=== PATIENT | female | born 1970 | race African-American/Black ===

== ENCOUNTER 2016-10-02 17:58 | Emergency (ER) | payer OTHER ==
[2016-10-02] MEDS ORDERED: Magnesium Citrate 300 ML BOT ONE (18:59)
[2016-10-02] MEDS ORDERED: Bisacodyl 10 MG SUPP ONE (19:21)
--- NOTE | 2016-10-02 19:31 | RAD ---
ABDOMEN ONE VIEW 10/02/16 The bowel gas pattern is nonspecific. There is some mildly distended unorganized loops of proximal s mall bowel, maximal diameter of 3 cm. There is no small bowel dilation elsewhere. There is abundant fecal material in the colon but it is not significantly distended. Surgical clips are noted in the r ight upper quadrant and around the fundus of the stomach. The pelvis shows the right hip arthroplast y with no gross postoperative abnormalities. IMPRESSION: Mild constipation and nonspecific bowel gas pattern. POS: HOME
[2016-10-02] MEDS ORDERED: Fleet Enema 133 ML BOT PR SCH (20:00)
== END 2016-10-02 20:45 | disposition home or self-care (01) ==
LOC: BURERS 17:58
DX: M96.89 Other intraoperative and postprocedural complications and disorders of the musculoskeletal system (principal); K59.00 Constipation, unspecified; F41.9 Anxiety disorder, unspecified; F32.9 Major depressive disorder, single episode, unspecified; Z87.891 Personal history of nicotine dependence
CPT/HCPCS: 74000

== ENCOUNTER 2016-12-22 00:36 | Emergency (ER) | payer OTHER ==
[2016-12-22 01:06] LABS: Bilirubin Negative (Negative); Blood, Urine Trace (Negative); Clarity Clear (Clear); Glucose, Urine (Dipstick) Negative (Negative); Leukocyte Negative (Negative); Nitrite Negative (Negative); Protein, Urine (Dipstick) Negative (Neg-Trace); Urobilinogen 0.2 mg/dL (0.2-1.0)
[2016-12-22 01:13] LABS: Bacteria/HPF Rare-Few HPF (None Seen); RBC/HPF 0-3 HPF (0-3); Squamous Epithelial 0-3 HPF (0-3); WBC/HPF 0-3 HPF (0-3)
[2016-12-22 01:14] LABS: Other Microscopic Description RARE CLUE CELL
== END 2016-12-22 02:00 | disposition home or self-care (01) ==
LOC: BURERS 00:36
DX: J20.9 Acute bronchitis, unspecified (principal); F41.9 Anxiety disorder, unspecified; F32.9 Major depressive disorder, single episode, unspecified; F17.210 Nicotine dependence, cigarettes, uncomplicated
CPT/HCPCS: 81003; 81015; 87086; 99283

== ENCOUNTER 2017-02-01 18:36 | Emergency (ER) | payer MEDICARE, OTHER ==
[2017-02-01] MEDS ORDERED: HYDROcodone/Acetaminophen 10/325 mg Tablet ONE (18:51)
[2017-02-01] MEDS ORDERED: Ketorolac Tromethamine 30 MG/ML VIAL ONE (18:52)
[2017-02-01 18:56] LABS: Bilirubin Negative (Negative); Blood, Urine Small (Negative); Clarity Cloudy (Clear); Glucose, Urine (Dipstick) Negative (Negative); Leukocyte Negative (Negative); Nitrite Negative (Negative); Protein, Urine (Dipstick) Negative (Neg-Trace); Specific Gravity, Urine 1.025 (1.005-1.030); Urobilinogen 0.2 mg/dL (0.2-1.0)
[2017-02-01 18:59] LABS: Bacteria/HPF 4+ HPF (None Seen); RBC/HPF 0-3 HPF (0-3); WBC/HPF 0-3 HPF (0-3)
== END 2017-02-01 19:10 | disposition home or self-care (01) ==
LOC: BURERS 18:36
DX: M54.5 Low back pain (principal); Z87.39 Personal history of other diseases of the musculoskeletal system and connective tissue; F41.9 Anxiety disorder, unspecified; F32.9 Major depressive disorder, single episode, unspecified
CPT/HCPCS: 81003; 81015; 87086; 96372; J1885

== ENCOUNTER 2017-12-02 09:05 | Emergency (ER) | payer OTHER, SELFPAY ==
[2017-12-02 09:44] LABS: Clarity Cloudy (Clear); Specific Gravity, Urine 1.025 (1.005-1.030)
[2017-12-02 09:45] LABS: Bilirubin Negative (Negative); Blood, Urine Trace (Negative); Glucose, Urine (Dipstick) Negative (Negative); Leukocyte Moderate (Negative); Nitrite Negative (Negative); Protein, Urine (Dipstick) Negative (Neg-Trace); Urobilinogen 0.2 mg/dL (0.2-1.0)
[2017-12-02 10:03] LABS: #Eosinphils 0.1 thou/uL (0.0-0.7); #Lymphocytes 1.4 thou/uL (1.20-3.40); #Monocytes 0.2 thou/uL (0.11-0.59); #Neutrophils 2.8 thou/uL (1.40-6.50); %Basophils 0.5 % (0.0-1.0); %Eosinophils 1.7 % (0.0-10.0); %Lymphocytes 31.4 % (21.0-51.0); %Monocytes 4.2 % (0.0-10.0); %Neutrophils 62.3 % (42.0-75.0); Hemoglobin 12.7 g/dL (12.0-16.0); Mean Corpuscular HGB CONC 32.4 g/dL (32.0-36.0); Mean Corpuscular Hemoglobin 29.1 pg (27.0-31.0); Mean Corpuscular Volume 89.6 fL (78.0-98.0); Mean Platelet Volume 6.4 fL (7.4-10.4); Platelet Count 356 thou/uL (130-400); Red Blood Cell (RBC) Count 4.37 mill/uL (4.20-5.40); White Blood Cell (WBC) Count 4.5 thou/uL (4.8-10.8)
[2017-12-02 10:05] LABS: Bacteria/HPF 2+ HPF (None Seen); RBC/HPF None Seen HPF (0-3); Squamous Epithelial 21-50 HPF (0-3); Transitional Epithelial 0-3 HPF (0-3); WBC/HPF 0-3 HPF (0-3); Yeast-All Forms 4+ HPF (None Seen)
[2017-12-02 10:16] LABS: Anion Gap 10 mmol/L (10-20); BUN (Urea Nitrogen) 9 mg/dL (7.0-18.7); Calc. Creatinine Clearance 0 mL/min (70-130); Calcium 9.3 mg/dL (7.8-10.44); Carbon Dioxide 27 mmol/L (22-29); Chloride 110 mmol/L (98-107); Estimated GFR-MDRD Greater than 90; Glucose 106 mg/dL (70-105); Potassium 3.8 mmol/L (3.5-5.1); Sodium 143 mmol/L (136-145); Uric Acid 3.8 mg/dL (2.6-6.0)
[2017-12-02] MEDS ORDERED: HYDROcodone/Acetaminophen 5/325 mg Tablet ONE (10:31)
[2017-12-02] MEDS ORDERED: Sulfameth/Trimethoprim DS 800-160mg TAB ONE (10:31)
[2017-12-02] MEDS ORDERED: Ibuprofen 800 MG TAB ONE (10:31)
[2017-12-02] MEDS ORDERED: Phenazopyridine HCl 97.5 MG TABLET ONE (10:31)
== END 2017-12-02 10:40 | disposition home or self-care (01) ==
LOC: BURERS 09:05
DX: M79.672 Pain in left foot (principal); B37.3 Candidiasis of vulva and vagina; R82.71 Bacteriuria; F31.9 Bipolar disorder, unspecified; F41.9 Anxiety disorder, unspecified; F17.210 Nicotine dependence, cigarettes, uncomplicated
CPT/HCPCS: 80048; 81003; 81015; 84550; 85025; 99283

== ENCOUNTER 2018-02-28 19:35 | Emergency (ER) | payer MEDICARE, SELFPAY ==
[2018-02-28 20:24] LABS: Clarity Hazy (Clear)
[2018-02-28 20:25] LABS: Bilirubin Negative (Negative); Blood, Urine Trace (Negative); Glucose, Urine (Dipstick) Negative (Negative); Leukocyte Negative (Negative); Nitrite Negative (Negative); Protein, Urine (Dipstick) Negative (Neg-Trace)
[2018-02-28 20:33] LABS: Bacteria/HPF 1+ HPF (None Seen); Hyaline Casts/LPF 0-3 HYALINE CAST LPF (0-3 Hyaline); Other Microscopic Description 1+ MUCUS; WBC/HPF 0-3 HPF (0-3)
--- NOTE | 2018-02-28 21:42 | RAD ---
RIGHT HIP TWO VIEWS: 02/28/18 A prior hip arthroplasty is noted. There is no sign of loosening or infection of the appliance. The s urrounding bone shows no acute changes. No fracture or area of bony destruction was seen. IMPRESSION: No acute findings. POS: HOME
== END 2018-02-28 21:21 | disposition home or self-care (01) ==
LOC: BURERS 19:35
DX: S39.012A Strain of muscle, fascia and tendon of lower back, initial encounter (principal); F41.9 Anxiety disorder, unspecified; F31.9 Bipolar disorder, unspecified; F17.210 Nicotine dependence, cigarettes, uncomplicated; Z79.1 Long term (current) use of non-steroidal anti-inflammatories (NSAID); Z79.899 Other long term (current) drug therapy; X58.XXXA Exposure to other specified factors, initial encounter
CPT/HCPCS: 81003; 81015

== ENCOUNTER 2018-06-08 09:56 | Emergency (ER) | payer MEDICARE ==
[2018-06-08] MEDS ORDERED: Dicyclomine 20 MG TAB ONE (10:29)
[2018-06-08] MEDS ORDERED: Ondansetron PF 4 MG/2 ML Vial ONE (10:29)
[2018-06-08] MEDS ORDERED: Ketorolac Tromethamine 30 MG/ML VIAL ONE (10:30)
[2018-06-08 10:50] LABS: ALT (SGPT) 14 U/L (8-55); AST (SGOT) 21 U/L (5-34); Albumin 3.9 g/dL (3.5-5.0); Alkaline Phosphatase 71 U/L (40-150); Anion Gap 13 mmol/L (10-20); BUN (Urea Nitrogen) 11 mg/dL (7.0-18.7); Bilirubin, Total 0.9 mg/dL (0.2-1.2); Calc. Creatinine Clearance 0 mL/min (70-130); Calcium 8.8 mg/dL (7.8-10.44); Carbon Dioxide 22 mmol/L (22-29); Chloride 105 mmol/L (98-107); Estimated GFR-MDRD Greater than 90; Globulin 3.3 g/dL (2.4-3.5); Glucose 80 mg/dL (70-105); Lipase 8 U/L (8-78); Protein, Total 7.2 g/dL (6.0-8.3)
[2018-06-08 11:06] LABS: #Lymphocytes 0.3 thou/uL (1.20-3.40); #Monocytes 0.1 thou/uL (0.11-0.59); #Neutrophils 4.5 thou/uL (1.40-6.50); %Basophils 0.4 % (0.0-1.0); %Eosinophils 0.8 % (0.0-10.0); %Lymphocytes 6.4 % (21.0-51.0); %Monocytes 2.6 % (0.0-10.0); %Neutrophils 89.9 % (42.0-75.0); Hemoglobin 12.4 g/dL (12.0-16.0); Mean Corpuscular HGB CONC 31.5 g/dL (32.0-36.0); Mean Corpuscular Hemoglobin 29.4 pg (27.0-31.0); Mean Corpuscular Volume 93.3 fL (78.0-98.0); Mean Platelet Volume 5.8 fL (7.4-10.4); Platelet Count 312 thou/uL (130-400); RBC Distribution Width 13.4 % (11.5-14.5); Red Blood Cell (RBC) Count 4.21 mill/uL (4.20-5.40); White Blood Cell (WBC) Count 5.1 thou/uL (4.8-10.8)
[2018-06-08] MEDS ORDERED: Lidocaine Viscous Sol 2% 15 ml UD Cup ONE (11:14)
[2018-06-08] MEDS ORDERED: Mag-Al Plus 1200 MG/1200 MG/120 MG/30 ML UDCUP ONE (11:14)
[2018-06-08 13:41] LABS: Pregnancy Test - Urine (BHCG) Negative (Negative); Pregu Control Background? CLEAR/WHITE (CLR/WHITE); Pregu Control Bar Appear? YES (CONTROL BAR); Specific Gravity 1.025 (1.002-1.036)
[2018-06-08 13:42] LABS: Clarity SLIGHTLY (Clear); Specific Gravity, Urine 1.025 (1.005-1.030); pH, Urine 5.5 (5.0-9.0)
[2018-06-08 13:43] LABS: Bacteria/HPF Rare-Few HPF (None Seen); Bilirubin Small (Negative); Blood, Urine Small (Negative); Glucose, Urine (Dipstick) Negative (Negative); Leukocyte Negative (Negative); Nitrite Negative (Negative); Oval Fat Bodies/HPF None Seen HPF (None Seen); Protein, Urine (Dipstick) Negative (Neg-Trace); RBC/HPF 0-3 HPF (0-3); Renal Epithelial None Seen HPF (0-3); Sperm/HPF None Seen HPF (None Seen); Squamous Epithelial 0-3 HPF (0-3); Transitional Epithelial NONE SEEN HPF (0-3); Trichomonas/HPF None Seen HPF (None Seen); Urobilinogen 0.2 mg/dL (0.2-1.0); WBC/HPF 0-3 HPF (0-3); Yeast-All Forms None Seen HPF (None Seen)
[2018-06-08 13:44] LABS: Crystals/HPF None Seen HPF (Negative); Hyaline Casts/LPF NONE SEEN LPF (0-3 Hyaline); Other Casts/LPF None Seen LPF (0-3 Hyaline)
[2018-06-08 13:46] LABS: Potassium 3.7 mmol/L (3.5-5.1); Sodium 135 mmol/L (136-145)
== END 2018-06-08 13:10 | disposition home or self-care (01) ==
LOC: BURERS 09:56
DX: K52.9 Noninfective gastroenteritis and colitis, unspecified (principal); F41.9 Anxiety disorder, unspecified; F31.9 Bipolar disorder, unspecified; F17.210 Nicotine dependence, cigarettes, uncomplicated
CPT/HCPCS: 80053; 81003; 81015; 81025; 83690; 85025; 96361; 96374; 96375; J1885; J2405

== ENCOUNTER 2018-11-05 14:02 | Emergency (ER) | payer MEDICARE ==
[2018-11-05] MEDS ORDERED: Ketorolac Tromethamine 60 MG/2 ML VIAL ONE (14:38)
[2018-11-05] MEDS ORDERED: Morphine 4 MG/ML VIAL ONE (14:38)
== END 2018-11-05 14:49 | disposition home or self-care (01) ==
LOC: BURERS 14:02
DX: M54.5 Low back pain (principal); F41.9 Anxiety disorder, unspecified; F31.9 Bipolar disorder, unspecified; F17.210 Nicotine dependence, cigarettes, uncomplicated; Z79.891 Long term (current) use of opiate analgesic; Z79.899 Other long term (current) drug therapy
CPT/HCPCS: 96372; 99283; J1885; J2270

== ENCOUNTER 2018-12-20 20:38 | Emergency (ER) | payer MEDICARE, BC | END 2018-12-20 21:05 | disposition home or self-care, planned readmission (81) | LOC: BURERS 20:38 | DX: G89.29 Other chronic pain (principal); M54.5 Low back pain; F31.9 Bipolar disorder, unspecified; F41.9 Anxiety disorder, unspecified; F17.210 Nicotine dependence, cigarettes, uncomplicated ==

== ENCOUNTER → 2019-03-03 | Emergency (ER) | payer MEDICARE, BC ==
[2019-03-03 08:16] LABS: ALT (SGPT) 11 U/L (8-55); AST (SGOT) 11 U/L (5-34); Albumin 4.1 g/dL (3.5-5.0); Alkaline Phosphatase 76 U/L (40-110); Anion Gap 14 mmol/L (10-20); BUN (Urea Nitrogen) 8 mg/dL (7.0-18.7); Bilirubin, Total 0.5 mg/dL (0.2-1.2); Calc. Creatinine Clearance 0 mL/min (70-130); Calcium 9.3 mg/dL (7.8-10.44); Carbon Dioxide 24 mmol/L (22-29); Chloride 105 mmol/L (98-107); Estimated GFR-MDRD Greater than 90; Globulin 3.5 g/dL (2.4-3.5); Potassium 3.9 mmol/L (3.5-5.1); Protein, Total 7.6 g/dL (6.0-8.3); Sodium 139 mmol/L (136-145)
[2019-03-03 08:17] LABS: #Basophils 0.1 thou/uL (0.0-0.2); #Eosinphils 0.1 thou/uL (0.0-0.7); #Lymphocytes 1.6 thou/uL (1.20-3.40); #Monocytes 0.4 thou/uL (0.11-0.59); #Neutrophils 4.4 thou/uL (1.40-6.50); %Basophils 1.1 % (0.0-1.0); %Eosinophils 1.3 % (0.0-10.0); %Lymphocytes 24.3 % (21.0-51.0); %Neutrophils 67.2 % (42.0-75.0); Hemoglobin 13.3 g/dL (12.0-16.0); Mean Corpuscular HGB CONC 31.1 g/dL (32.0-36.0); Mean Corpuscular Hemoglobin 28.7 pg (27.0-31.0); Mean Corpuscular Volume 92.3 fL (78.0-98.0); Mean Platelet Volume 5.9 fL (7.4-10.4); Platelet Count 367 thou/uL (130-400); RBC Distribution Width 13.9 % (11.5-14.5); Red Blood Cell (RBC) Count 4.64 mill/uL (4.20-5.40); White Blood Cell (WBC) Count 6.6 thou/uL (4.8-10.8)
[2019-03-03 08:42] LABS: Glucose 54 mg/dL (70-105)
== END ==
LOC: BURERS 07:11
DX: S80.02XA Contusion of left knee, initial encounter (principal); S80.01XA Contusion of right knee, initial encounter; M54.5 Low back pain; G89.29 Other chronic pain; R55 Syncope and collapse; F31.9 Bipolar disorder, unspecified; F41.9 Anxiety disorder, unspecified; F17.210 Nicotine dependence, cigarettes, uncomplicated; Z79.899 Other long term (current) drug therapy; W18.30XA Fall on same level, unspecified, initial encounter
CPT/HCPCS: 36415; 80053; 85025; 93005

== ENCOUNTER 2019-04-11 12:11 | Emergency (ER) | payer BC, MEDICARE | END 2019-04-11 12:49 | disposition left against medical advice (07) | LOC: BURERS 12:11 | DX: R07.9 Chest pain, unspecified (principal); F41.9 Anxiety disorder, unspecified; F31.9 Bipolar disorder, unspecified; F17.210 Nicotine dependence, cigarettes, uncomplicated; Z79.899 Other long term (current) drug therapy | CPT/HCPCS: 93005 ==

== ENCOUNTER 2019-06-03 22:36 | Emergency (ER) | payer MEDICARE, MEDICAID ==
[2019-06-03] MEDS ORDERED: predniSONE 20 MG TAB ONE (22:52)
[2019-06-03] MEDS ORDERED: diphenhydrAMINE 50 MG/ML VIAL ONE (22:52)
== END 2019-06-03 23:24 | disposition home or self-care (01) ==
LOC: BURERS 22:36
DX: S00.86XA Insect bite (nonvenomous) of other part of head, initial encounter (principal); F31.9 Bipolar disorder, unspecified; F41.9 Anxiety disorder, unspecified; F17.210 Nicotine dependence, cigarettes, uncomplicated; Z79.891 Long term (current) use of opiate analgesic; Z71.6 Tobacco abuse counseling; Z79.899 Other long term (current) drug therapy; W57.XXXA Bitten or stung by nonvenomous insect and other nonvenomous arthropods, initial encounter
CPT/HCPCS: J1200; J7512; 96372; 99406

== ENCOUNTER 2019-10-09 16:19 | Emergency (ER) | payer MEDICARE, MEDICAID ==
[2019-10-09] MEDS ORDERED: Ketorolac Tromethamine 30 MG/ML VIAL ONE (17:34)
--- NOTE | 2019-10-09 19:58 | RAD ---
RIGHT ANKLE THREE VIEWS: 10/09/19 No acute fracture was seen. There is a bony density near the tip of the medial malleolus that is sugg estive of old trauma in this location. The articular surfaces are smooth. IMPRESSION: Soft tissue swelling but no acute bony finding. POS: HOME
== END 2019-10-09 17:50 | disposition home or self-care (01) ==
LOC: BURERS 16:19
DX: S93.401A Sprain of unspecified ligament of right ankle, initial encounter (principal); F31.9 Bipolar disorder, unspecified; F41.9 Anxiety disorder, unspecified; F17.210 Nicotine dependence, cigarettes, uncomplicated; Z79.899 Other long term (current) drug therapy; X50.1XXA Overexertion from prolonged static or awkward postures, initial encounter
CPT/HCPCS: 96372; J1885

== ENCOUNTER 2020-05-26 17:56 | Emergency (ER) | payer MEDICARE, MEDICAID ==
[~2020-05-26 17:56] MED LIST: Iopamidol 370 76% 100 ML VIAL ONE
[2020-05-26] MEDS ORDERED: Acetaminophen 500 MG TAB ONE (18:24)
[2020-05-26] MEDS ORDERED: Ondansetron PF 4 MG/2 ML Vial ONE (18:35)
[2020-05-26] MEDS ORDERED: Lidocaine Viscous Sol 2% 15 ml UD Cup ONE (18:48)
[2020-05-26] MEDS ORDERED: Mag-Al Plus 1200 MG/1200 MG/120 MG/30 ML UDCUP ONE (18:48)
[2020-05-26 19:17] LABS: ALT (SGPT) Less than 7 U/L (8-55); AST (SGOT) 13 U/L (5-34); Albumin 3.9 g/dL (3.5-5.0); Alkaline Phosphatase 71 U/L (40-110); Anion Gap 14 mmol/L (10-20); BUN (Urea Nitrogen) 11 mg/dL (7.0-18.7); Bilirubin, Total 0.5 mg/dL (0.2-1.2); Calc. Creatinine Clearance 0 mL/min (70-130); Calcium 8.7 mg/dL (7.8-10.44); Carbon Dioxide 27 mmol/L (22-29); Chloride 101 mmol/L (98-107); Globulin 3.7 g/dL (2.4-3.5); Glucose 97 mg/dL (70-105); Lipase 17 U/L (8-78); Potassium 3.8 mmol/L (3.5-5.1); Protein, Total 7.6 g/dL (6.0-8.3); Sodium 138 mmol/L (136-145)
[2020-05-26 19:27] LABS: Hemoglobin 14.7 g/dL (12.0-16.0); Mean Corpuscular Hemoglobin 31.2 pg (27.0-31.0); Mean Corpuscular Volume 94.5 fL (78.0-98.0); Mean Platelet Volume 6.4 fL (7.4-10.4); Platelet Count 302 thou/uL (130-400); RBC Distribution Width 12.5 % (11.5-14.5); Red Blood Cell (RBC) Count 4.72 mill/uL (4.20-5.40); White Blood Cell (WBC) Count 5.5 thou/uL (4.8-10.8)
[2020-05-26 19:59] LABS: Band 10 % (5-11); Eosinophils 1 % (0-10); Lymphocytes 9 % (21-51); MDiff Complete? YES; Monocytes 2 % (0-10); Myelocyte 1 % (0-0); Neutrophil 77 % (42-75)
[2020-05-26 20:29] LABS: Bilirubin Negative (Negative); Blood, Urine Trace (Negative); Clarity Clear (Clear); Glucose, Urine (Dipstick) Negative (Negative); Ketone, Urine Negative (Negative); Leukocyte Negative (Negative); Nitrite Negative (Negative); Protein, Urine (Dipstick) Negative (Neg-Trace); pH, Urine 7.5 (5.0-9.0)
[2020-05-26 20:38] LABS: Bacteria/HPF Rare-Few HPF (None Seen); RBC/HPF 0-3 HPF (0-3); Squamous Epithelial 0-3 HPF (0-3); WBC/HPF 0-3 HPF (0-3)
[2020-05-27 18:10] LABS: SARS-CoV-2 PCR by NAA Not Detected (NotDetected)
== END 2020-05-26 21:04 | disposition home or self-care (01) ==
LOC: BURERS 17:56
DX: A08.4 Viral intestinal infection, unspecified (principal); F17.210 Nicotine dependence, cigarettes, uncomplicated; R11.2 Nausea with vomiting, unspecified; Z79.899 Other long term (current) drug therapy; Z20.822 Contact with and (suspected) exposure to COVID-19
CPT/HCPCS: 71045; 74177; 80053; 81003; 81015; 83690; 84484; 85025; 87635; 93005; 96374; J2405; Q9967; U0003; U0005

== ENCOUNTER 2020-06-25 10:25 | Outpatient (CLI) | payer MEDICARE, MEDICAID ==
[2020-06-25] MEDS ORDERED: Iopamidol 370 76% 100 ML VIAL ONE (14:24)
== END 2020-06-25 10:26 | disposition home or self-care (01) ==
LOC: BURCT 10:25
PROVIDERS: ATTEND Family Medicine
DX: G44.52 New daily persistent headache (NDPH) (principal); H53.8 Other visual disturbances
CPT/HCPCS: 70470; Q9967

== ENCOUNTER 2020-10-04 07:15 | Emergency (ER) | payer MEDICARE, MEDICAID ==
[2020-10-04 08:12] LABS: #Eosinphils 0.1 thou/uL (0.0-0.7); #Lymphocytes 1.3 thou/uL (1.20-3.40); #Monocytes 0.3 thou/uL (0.11-0.59); #Neutrophils 2.6 thou/uL (1.40-6.50); %Basophils 0.7 % (0.0-1.0); %Eosinophils 2.2 % (0.0-10.0); %Lymphocytes 30.5 % (21.0-51.0); %Monocytes 7.1 % (0.0-10.0); %Neutrophils 59.4 % (42.0-75.0); Hemoglobin 13.5 g/dL (12.0-16.0); Mean Corpuscular HGB CONC 33.2 g/dL (32.0-36.0); Mean Corpuscular Hemoglobin 31.1 pg (27.0-31.0); Mean Corpuscular Volume 93.8 fL (78.0-98.0); Mean Platelet Volume 6.3 fL (7.4-10.4); Platelet Count 328 thou/uL (130-400); RBC Distribution Width 12.8 % (11.5-14.5); Red Blood Cell (RBC) Count 4.36 mill/uL (4.20-5.40); White Blood Cell (WBC) Count 4.3 thou/uL (4.8-10.8)
[2020-10-04] MEDS ORDERED: Dexamethasone 4 MG TAB ONE (08:36)
== END 2020-10-04 08:38 | disposition home or self-care (01) ==
LOC: BURERS 07:15
DX: M76.62 Achilles tendinitis, left leg (principal); M19.90 Unspecified osteoarthritis, unspecified site; Z79.899 Other long term (current) drug therapy
CPT/HCPCS: 36415; 83880; 84550; 85025; 99283; J8540

== ENCOUNTER 2020-11-17 15:03 | Emergency (ER) | payer MEDICARE, MEDICAID | END 2020-11-17 15:50 | disposition home or self-care (01) | LOC: BURERS 15:03 | DX: M76.62 Achilles tendinitis, left leg (principal) | CPT/HCPCS: 99283 ==

== ENCOUNTER 2021-02-03 04:47 | Emergency (ER) | payer MEDICARE, MEDICAID ==
[2021-02-03] MEDS ORDERED: Ondansetron ODT 4 MG TAB ONE (05:19)
[2021-02-03] MEDS ORDERED: Mag-Al Plus 1200 MG/1200 MG/120 MG/30 ML UDCUP ONE (05:20)
[2021-02-03] MEDS ORDERED: Ketorolac Tromethamine 60 MG/2 ML VIAL ONE (05:20)
[2021-02-03] MEDS ORDERED: Lidocaine Viscous Sol 2% 15 ml UD Cup ONE (05:20)
[2021-02-03 19:49] LABS: SARS-CoV-2 PCR by NAA Not Detected (NotDetected)
== END 2021-02-03 05:42 | disposition home or self-care (01) ==
LOC: BURERS 04:47
DX: K29.70 Gastritis, unspecified, without bleeding (principal); Z20.822 Contact with and (suspected) exposure to COVID-19; M19.90 Unspecified osteoarthritis, unspecified site; Z79.899 Other long term (current) drug therapy
CPT/HCPCS: 96372; 99284; J1885; Q0162; U0003; U0005

== ENCOUNTER 2021-03-30 08:27 | Outpatient (CLI) | payer MEDICARE, MEDICAID ==
[2021-03-30 09:40] LABS: #Basophils 0.1 thou/uL (0.0-0.2); #Eosinphils 0.1 thou/uL (0.0-0.7); #Lymphocytes 1.5 thou/uL (1.20-3.40); #Monocytes 0.4 thou/uL (0.11-0.59); #Neutrophils 3.9 thou/uL (1.40-6.50); %Basophils 1.7 % (0.0-1.0); %Eosinophils 1.2 % (0.0-10.0); %Lymphocytes 24.8 % (21.0-51.0); %Monocytes 6.1 % (0.0-10.0); %Neutrophils 66.2 % (42.0-75.0); Hemoglobin 14.1 g/dL (12.0-16.0); Mean Corpuscular HGB CONC 32.4 g/dL (32.0-36.0); Mean Corpuscular Hemoglobin 30.5 pg (27.0-31.0); Mean Corpuscular Volume 94.2 fL (78.0-98.0); Mean Platelet Volume 5.6 fL (7.4-10.4); Platelet Count 333 thou/uL (130-400); RBC Distribution Width 12.7 % (11.5-14.5); Red Blood Cell (RBC) Count 4.63 mill/uL (4.20-5.40)
[2021-03-30 10:15] LABS: ALT (SGPT) 9 U/L (8-55); AST (SGOT) 12 U/L (5-34); Albumin 3.8 g/dL (3.5-5.0); Alkaline Phosphatase 80 U/L (40-110); Anion Gap 12 mmol/L (10-20); BUN (Urea Nitrogen) 15 mg/dL (7.0-18.7); Bilirubin, Total 0.6 mg/dL (0.2-1.2); CK (CPK) 43 U/L (29-168); CRP (Inflammatory) Less than 0.50 mg/dL (= or < 0.5); Calc. Creatinine Clearance 0 mL/min (70-130); Calcium 9.5 mg/dL (7.8-10.44); Carbon Dioxide 28 mmol/L (22-29); Chloride 105 mmol/L (98-107); Globulin 2.9 g/dL (2.4-3.5); Glucose 86 mg/dL (70-105); Potassium 3.9 mmol/L (3.5-5.1); Protein, Total 6.7 g/dL (6.0-8.3); Sodium 141 mmol/L (136-145); Uric Acid 3.7 mg/dL (2.6-6.0)
[2021-03-30 10:16] LABS: CKMB 0.7 ng/mL (0-6.6)
[2021-03-30 11:31] LABS: Complement-C4 29.3 mg/dL (15-57)
[2021-03-31 08:51] LABS: Reference Lab Name LABCORP
[2021-03-31 08:52] LABS: Ref Lab Test Ordered RF IGG
[2021-03-31 08:52] LABS: Reference Lab Name LABCORP
[2021-03-31 08:55] LABS: Ref Lab Test Ordered 14-3-3 RHEU ARTRITIS
== END 2021-03-30 08:28 | disposition home or self-care (01) ==
LOC: BURRAD 08:27
PROVIDERS: ATTEND Internal Medicine Rheumatology
DX: M25.552 Pain in left hip (principal); M25.572 Pain in left ankle and joints of left foot; M77.11 Lateral epicondylitis, right elbow; M35.1 Other overlap syndromes
CPT/HCPCS: 36415; 80053; 82550; 82553; 83520; 84550; 85025; 85652; 86038; 86140; 86160; 86200; 86225; 86235

== ENCOUNTER 2021-08-12 19:38 | Outpatient (CLI) | payer MEDICARE, MEDICAID | END 2021-08-12 19:39 | disposition home or self-care (01) | LOC: BURRAD 19:38 | PROVIDERS: ATTEND Physical Therapist | DX: M54.16 Radiculopathy, lumbar region (principal) | CPT/HCPCS: 72020 ==